=== PATIENT | male | born 1950 | race Caucasian/White ===

== ENCOUNTER 2019-01-30 14:24 | Inpatient (IN) | payer OTHER ==
[2019-01-30] MEDS ORDERED: IPRATROPIUM BROM 0.5MG/2.5ML ONE (15:09)
[2019-01-30] MEDS ORDERED: ALBUTEROL 2.5 MG/3 ML NEB SOL ONE (15:09)
--- NOTE | 2019-01-30 15:10 | RAD REPORT ---
EXAM DESCRIPTION: CT - CTHCSPWOC - 01/30/2019 2:57 pm CLINICAL HISTORY: Trauma, head and neck injury. fall COMPARISON: No comparisons TECHNIQUE: Axial 5 mm thick images of the head were obtained. Axial 2 mm thick images of the cervical spine were obtained with sagittal and coronal reconstruction images generated and reviewed. All CT scans are performed using dose optimization technique as appropriate and may include automated exposure control or mA/KV adjustment according to patient size. FINDINGS: CT HEAD WITHOUT CONTRAST: No acute hemorrhage, hydrocephalus or extra-axial collection is identified.No areas of brain edema or midline shift. Moderate mucoperiosteal thickening affects the left maxillary antrum and left ethmoid air cells. The paranasal sinuses and mastoids are otherwise clear.The calvarium is intact. CT CERVICAL SPINE WITHOUT CONTRAST: No fracture or subluxation.No prevertebral soft tissues swelling is identified. Irregular scarring in severe emphysematous changes present in the lung apices. IMPRESSION: No acute intracranial or cervical spine findings.
[2019-01-30 15:22] LABS: Absolute Lymphocytes (CBC) 1.1 K/uL (0.7-4.9); Absolute Monocytes 0.9 K/uL (0.1-1.3); Absolute Neutrophil 7.1 K/uL (1.8-8.0); Basophils % 0.5 % (0-1.3); Eosinophils % 0.6 % (0-4.4); Hematocrit 41.9 % (39.6-49.0); Lymphocytes % 11.6 % (15.3-44.8); MPV 11.2 fL (7.6-11.3); Monocytes % 9.7 % (3.3-12.3); RBC Red Blood Cell Count 4.43 M/uL (4.33-5.43)
[2019-01-30 15:24] LABS: Protime INR 1.18
[2019-01-30 15:38] LABS: Albumin 3.1 g/dL (3.4-5.0); Bilirubin Direct 0.3 mg/dL (0-0.2); Bilirubin Total 0.8 mg/dL (0.2-1.0); Magnesium 2.2 mg/dL (1.8-2.4); Potassium 4.1 mmol/L (3.5-5.1); Protein, Total 6.4 g/dL (6.4-8.2); Troponin (Emerg Dept Use Only) 0.03 ng/mL (0.0-0.045)
--- NOTE | 2019-01-30 15:59 | RAD REPORT ---
EXAM DESCRIPTION: RAD - Chest Single View - 01/30/2019 3:22 pm CLINICAL HISTORY: Weakness, shortness of breath, COPD COMPARISON: CT chest January 2015, chest film October 2014 TECHNIQUE: AP portable chest image was obtained 1519 hours . FINDINGS: Patient has a baseline of severe COPD with hyper expanded lung laura, flattened diaphragm . Bilateral costophrenic angle blunting is present. Extensive bullous formation is identifiable. Foca l cavity is present in the lateral right apex with surrounding fibrotic stranding. Interstitial and p atchy alveolar opacification in the mid and upper lung laura is far more pronounced than seen previo usly. In the acute clinical setting this is most likely a bilateral pneumonia. Progressive fibrosis o nasima this long interval is possible but does not likely explain the entirety of the interval change. Heart and vasculature are normal. No measurable pleural effusion and no pneumothorax. No acute bony abnormality seen. No acute aortic findings suspected. IMPRESSION: Left greater than right bilateral pneumonia superimposed on severe COPD. COPD has progressed substantially from 2015 comparison with focal cavitation now present in the right apex.
--- NOTE | 2019-01-30 17:00 | RAD REPORT ---
EXAM DESCRIPTION: CT - Thorax W/ Con - 01/30/2019 4:40 pm CLINICAL HISTORY: Chest pain, shortness of breath COMPARISON: Chest films same date, CT chest 2015 TECHNIQUE: Dynamically enhanced 5 mm thick images of the chest were obtained during administration o f 100 mL non-ionic IV contrast. All CT scans are performed using dose optimization technique as appropriate and may include automated exposure control or mA/KV adjustment according to patient size. FINDINGS: Patient has severe COPD. Multiple 3- 7 mm air-filled cystic cavities are present in the ri ght apex progressive from prior imaging. Less extensive cystic cavity formation in the left apex. In the left upper lung field there is a 3.6 x 1.6 centimeter irregular mass density. Extensive fibrotic stranding is present in the superior and lateral right apex. A 3.3 x 1.6 centimeter soft tissue mass is present in the lateral superior left lower lobe. Patient has numerous 8-12 cm sized air-filled cys tic cavities at each lung base. Interstitial thickening and scattered alveolar opacities are present in the posterior mid lung laura . This is believed to be the pneumonia component seen on chest film. No pleural based mass. There is a small left pleural effusion. No pneumothorax. No chest wall mass or abnormal axillary lymphadenopat hy. No abnormal mediastinal or hilar mass or lymphadenopathy seen. Aorta and pulmonary arterial tree enha nce normally. No pericardial effusion. IMPRESSION: Patient has very severe cystic emphysema change as detailed. Findings are progressive fr om the 2015 comparison. Interstitial and alveolar opacities in the posterior aspect of each mid lung field are believed to be superimposed pneumonia in these changes of the correlate to the chest film finding. Patient has several spiculated mass density scattered in the lung parenchyma, primarily upper lung fi elds. These are most likely areas of scarring from the COPD. Malignancy is not excluded in these need monitoring for growth. Small left pleural effusion.
[2019-01-30] MEDS ORDERED: MAGNESIUM SULFATE 1 gm IVPB 1 GM/100 ML BAG IV ONE (17:36)
[2019-01-30] MEDS ORDERED: METHYLPREDNISOLONE 125 MG INJ ONE (17:36)
[2019-01-30] MEDS ORDERED: NA CHLORIDE 0.9% 250 ML ONE (17:36)
[2019-01-30] MEDS ORDERED: LEVALBUTEROL 1.25 MG/3 ML NEB ONE (17:36)
[2019-01-30] MEDS ORDERED: Levofloxacin 750mg IV 750 MG/150 ML BAG IV ONE (17:36)
[2019-01-30 18:26] LABS: Urine Bacteria <20 /HPF (NONE SEEN); Urine Coarse Granular Casts 0-5 /LPF (NONE SEEN); Urine Culture Reflex Order REFLEXED; Urine Mucus 2+ /HPF (NONE SEEN)
--- NOTE | 2019-01-30 18:27 | ER ---
Nurse's Notes [facility] Name: Bertrand Pabon Age: 68 yrs Sex: Male : 1950 Arrival Date: 01/30/2019 Time: 14:27 Bed 26 Private MD: Diagnosis: Pneumonia due to other specified bacteria;Respiratory failure, unspecified with hypoxia Presentation: 01/30 14:29 Presenting complaint: EMS states: Generalized weakness and SOB x 1 week. Transition of hb care: patient was not received from another setting of care. Onset of symptoms is unknown. Risk Assessment: Do you want to hurt yourself or someone else? Patient reports no desire to harm self or others. Care prior to arrival: None. 14:29 Method Of Arrival: EMS: [facility] hb 14:29 Acuity: JOSEPH 2 hb Historical: - Allergies: 14:59 No Known Allergies; em - PMHx: 14:30 COPD; hb - Immunization history:: Adult Immunizations up to date. - Social history:: Smoking status: Patient/guardian denies using tobacco, the patient reports quitting approximately 2 years ago. - Ebola Screening: : No symptoms or risks identified at this time. Screenin:19 Abuse screen: Denies threats or abuse. Denies injuries from another. Nutritional hb screening: No deficits noted. Tuberculosis screening: No symptoms or risk factors identified. Fall Risk Total Awad Fall Scale indicates High Risk Score (45 or more points). Fall prevention measures have been instituted. Side Rails Up X 2 Frequent Obs/Assessments Occuring Family Present and informed to notify staff if the need to leave the bedside As available patient and family educated on Fall Prevention Program and Strategies. Assessment: 14:35 General: Appears distressed, ill, Behavior is cooperative, flat. Pain: Denies pain. hb Neuro: Level of Consciousness is obeys commands, lethargic, Oriented to person, place, time, situation. Cardiovascular: Heart tones S1 S2 present Capillary refill < 3 seconds Patient's skin is warm and dry. Respiratory: Airway is patent Trachea midline Respiratory effort is labored, Respiratory pattern is tachypnea Breath sounds are diminished bilaterally. GI: No signs and/or symptoms were reported involving the gastrointestinal system. : No signs and/or symptoms were reported regarding the genitourinary system. EENT: No signs and/or symptoms were reported regarding the EENT system. Derm: Skin is healthy with good turgor, is thin, Skin is dry, Skin is pale, Skin temperature is warm. Musculoskeletal: No signs and/or symptoms reported regarding the musculoskeletal system. 15:05 Reassessment: BIPAP 12/6, R 12, FIO2 40%. hb 16:15 Reassessment: Patient appears in no apparent distress at this time. Patient and/or em family updated on plan of care and expected duration. Pain level reassessed. Patient is alert, oriented x 3, equal unlabored respirations, skin warm/dry/pink. Patient denies pain at this time. Patient states feeling better. Patient states symptoms have improved. 17:16 Reassessment: Patient appears in no apparent distress at this time. Patient and/or em family updated on plan of care and expected duration. Pain level reassessed. Patient is alert, oriented x 3, equal unlabored respirations, skin warm/dry/pink. family at bedside Patient denies pain at this time. 18:15 Reassessment: Patient appears in no apparent distress at this time. Patient and/or em family updated on plan of care and expected duration. Pain level reassessed. Patient is alert, oriented x 3, equal unlabored respirations, skin warm/dry/pink. 19:50 General: Appears distressed, ill, Behavior is cooperative, flat. Pain: Denies pain. fu Neuro: Level of Consciousness is obeys commands, lethargic, Oriented to person, place, time, situation. Respiratory: Airway is patent Respiratory effort is labored, Respiratory pattern is tachypnea Breath sounds are diminished. Derm: Skin is thin, Skin is dry, Skin is pale, Skin temperature is warm. Musculoskeletal: No signs and/or symptoms reported regarding the musculoskeletal system. 20:41 Reassessment: Patient appears in no apparent distress at this time. Patient and/or fu family updated on plan of care and expected duration. Pain level reassessed. Patient is alert, oriented x 3, equal unlabored respirations, skin warm/dry/pink. Patient denies pain at this time. Patient states symptoms have improved. Vital Signs: 14:26 Pulse Ox 76% on 3 lpm NC; hb 14:28 BP 124 / 75; Pulse 88; Resp 26; Temp 97(O); Pulse Ox 87% on 4 lpm NC; Pain 0/10; hb 15:22 BP 117 / 89; Pulse 90; Resp 19; Pulse Ox 89% on 40% BiPAP; hb 16:15 BP 109 / 74; Pulse 96; Resp 24; Pulse Ox 87% on BiPAP; em 17:15 BP 105 / 70; Pulse 89; Resp 22; Pulse Ox 89% on BiPAP; em 18:15 BP 103 / 66; Pulse 94; Resp 22; Pulse Ox 90% on BiPAP; em 19:00 BP 92 / 65; Pulse 97; Temp 98.9; Pulse Ox 93% on BiPAP; Pain 0/10; fu 20:44 BP 91 / 70; Pulse 82; Pulse Ox 94% on BiPAP; Pain 0/10; fu ED Course: 14:27 Patient arrived in ED. em 14:27 Jose Lebron PA is PHCP. cp 14:28 Scotty Krishnan MD is Attending Physician. cp 14:29 Triage completed. hb 14:30 Arm band placed on. hb 14:40 Patient has correct armband on for positive identification. Placed in gown. Bed in low hb position. Call light in reach. Side rails up X2. monitoring manager on. Pulse ox on. NIBP on. 14:54 EKG done, by survey cad technician. dt2 14:57 Kyle Bailey LVN is Primary Nurse. em 14:58 CT completed. Patient tolerated procedure well. Patient moved to CT. Patient moved back jg6 from CT. 15:00 Initial lab(s) drawn, by me, sent to lab. Inserted saline lock: 20 gauge in left Blood em collected. 15:01 CT Head C Spine In Process Unspecified. EDMS 15:14 BIPAP Sent. hb 15:22 XRAY Chest (1 view) In Process Unspecified. EDMS 16:[address] via stretcher. jg6 16:40 CT Chest W/ Con In Process Unspecified. EDMS 18:09 Assisted with urinal. jp3 18:09 Urine collected: clean catch specimen, clear, barbie colored, Amount Voided: 20mL. jp3 18:25 Mamie Austin MD is Hospitalizing Provider. cp Administered Medications: 15:13 Drug: Albuterol - atroVENT (3:1) (2.5 mg - 0.5 mg) 3 ml Route: Nebulizer; hb 17:40 Drug: SOLU-Medrol 125 mg Route: IVP; Site: left forearm; hb 18:33 Follow up: Response: No adverse reaction hb 17:50 Drug: LevaQUIN 750 mg Volume: 150 ml; Route: IVPB; Infused Over: 90 mins; Site: left em forearm; 17:50 Drug: NS 0.9% 250 ml Route: IV; Rate: bolus; Site: left forearm; em 17:50 Drug: Xopenex (3) 1.25 mg Route: Inhalation; em 17:50 Drug: Magnesium Sulfate 1 grams Route: IVPB; Infused Over: 1 hrs; Site: left forearm; em Outcome: 18:26 Decision to Hospitalize by Provider. cp 21:26 Admitted to Tele Report called to HUANG Reid 22:33 Patient left the ED. fu Signatures: Dispatcher [employer] EDyKle Bennett, LUMBER TRIPPER LUMBER TRIPPER em Jose Lebron PA PA cp Baxter, Heather, RN RN Eitan Antunez RN RN Mattie Varma dt2 Sebas Brooks jp3 Thao Martinezg6
--- NOTE | 2019-01-30 18:28 | EDPHYS ---
Physician Documentation [facility] Name: Bertrand Pabon Age: 68 yrs Sex: Male : 1950 Arrival Date: 01/30/2019 Time: 14:27 Bed 26 Private MD: ED Physician Scotty Krishnan HPI: 01/30 14:45 This 68 yrs old Male presents to ER via EMS with complaints of Shortness Of cp Breath. 14:45 The patient has shortness of breath at rest. Onset: The symptoms/episode began/occurred cp 1 week(s) ago. 14:45 Duration: The symptoms are continuous, and are steadily getting worse. Associated signs cp and symptoms: Pertinent positives: generalized weakness, Pertinent negatives: chest pain, diaphoresis, fever, hemoptysis. 14:45 Severity of symptoms: in the emergency department the symptoms are worse. cp Historical: - Allergies: 14:59 No Known Allergies; em - PMHx: 14:30 COPD; hb - Immunization history:: Adult Immunizations up to date. - Social history:: Smoking status: Patient/guardian denies using tobacco, the patient reports quitting approximately 2 years ago. - Ebola Screening: : No symptoms or risks identified at this time. ROS: 14:50 Constitutional: Negative for body aches, chills, fever, poor PO intake. cp 14:50 Eyes: Negative for injury, pain, redness, and discharge. cp 14:50 Cardiovascular: Negative for chest pain, palpitations. cp 14:50 Neck: Negative for pain with movement, pain at rest, stiffness. cp 14:50 Respiratory: Positive for shortness of breath, at rest. Negative for hemoptysis. 14:50 Abdomen/GI: Negative for abdominal pain, vomiting, diarrhea, constipation, black/tarry stool, rectal bleeding. 14:50 Skin: Negative for rash. 14:50 Neuro: Positive for general weakness, Negative for altered mental status, headache, syncope. 14:50 All other systems are negative. Exam: 14:55 Constitutional: The patient appears alert, awake, non-diaphoretic, non-toxic, well cp developed, frail. 14:55 Head/Face: Normocephalic, atraumatic. cp 14:55 Eyes: Periorbital structures: appear normal, Pupils: equal, round, and reactive to light and accomodation, Extraocular movements: intact throughout, Conjunctiva: normal, no exudate, no injection, Sclera: no appreciated abnormality, Lids and lashes: appear normal, bilaterally. 14:55 ENT: External ear(s): are unremarkable, Ear canal(s): are normal, clear, TM's: dullness, bilaterally, Nose: is normal, Mouth: Lips: dry, Oral mucosa: moist, Posterior pharynx: Airway: no evidence of obstruction, patent, Tonsils: are normal in appearance, swelling, is not appreciated, erythema, is not appreciated, exudate, is not appreciated. 14:55 Neck: ROM/movement: is normal, is supple, without pain, no range of motions limitations, no meningismus, no nuchal rigidity. 14:55 Chest/axilla: Inspection: normal, Palpation: is normal, no crepitus, no tenderness. 14:55 Cardiovascular: Rate: normal, Rhythm: regular, Edema: ankle edema, that is mild, JVD: is not appreciated. 14:55 Respiratory: moderate respiratory distress is noted, Respirations: labored breathing, that is moderate, tachypnea, that is moderate, Breath sounds: decreased breath sounds, that are moderate, throughout, stridor, is not appreciated, wheezing: is not appreciated. 14:55 Abdomen/GI: Inspection: abdomen appears normal, Palpation: abdomen is soft and non-tender, in all quadrants. 14:55 Skin: cellulitis, is not appreciated, no rash present. 14:55 Neuro: Orientation: to person, place \T\ time. Mentation: is normal, Cerebellar function: is grossly normal, Motor: moves all fours, general weakness w/o focal deficits, Sensation: is normal. 14:57 ECG was reviewed by the Attending Physician. cp Vital Signs: 14:26 Pulse Ox 76% on 3 lpm NC; hb 14:28 BP 124 / 75; Pulse 88; Resp 26; Temp 97(O); Pulse Ox 87% on 4 lpm NC; Pain 0/10; hb 15:22 BP 117 / 89; Pulse 90; Resp 19; Pulse Ox 89% on 40% BiPAP; hb 16:15 BP 109 / 74; Pulse 96; Resp 24; Pulse Ox 87% on BiPAP; em 17:15 BP 105 / 70; Pulse 89; Resp 22; Pulse Ox 89% on BiPAP; em 18:15 BP 103 / 66; Pulse 94; Resp 22; Pulse Ox 90% on BiPAP; em 19:00 BP 92 / 65; Pulse 97; Temp 98.9; Pulse Ox 93% on BiPAP; Pain 0/10; fu 20:44 BP 91 / 70; Pulse 82; Pulse Ox 94% on BiPAP; Pain 0/10; fu MDM: 14:28 Patient medically screened. 18:20 Data reviewed: vital signs, nurses notes, lab test result(s), EKG, radiologic studies, cp CT scan, plain films. 18:20 Test interpretation: by ED physician or midlevel provider: ECG, plain radiologic cp studies. 18:22 Physician consultation: Mamie Austin MD was called at 18:24, was contacted at 18:24, regarding admission, to the medical/surgical unit. patient's condition. 01/30 14:37 Order name: Basic Metabolic Panel; Complete Time: 15:58 01/30 15:59 Interpretation: Normal except: CL 92; CO2 40; GLUC 167; BUN 48; GFR 86. 01/30 14:37 Order name: CBC with Diff; Complete Time: 15:38 01/30 15:38 Interpretation: Normal except: HGB 13.3; MCHC 31.8; KATHY% 77.6; LYM% 11.6. 01/30 14:37 Order name: LFT's; Complete Time: 15:58 01/30 14:37 Order name: Magnesium; Complete Time: 15:58 01/30 14:37 Order name: NT PRO-BNP; Complete Time: 15:58 01/30 15:59 Interpretation: Abnormal: NT PRO-BNP 2144. 01/30 14:37 Order name: PT-INR; Complete Time: 15:38 01/30 14:37 Order name: Troponin (emerg Dept Use Only); Complete Time: 15:58 01/30 14:37 Order name: Blood Culture Adult (2) 01/30 14:37 Order name: Procalcitonin; Complete Time: 15:59 01/30 14:37 Order name: Lactate; Complete Time: 15:58 01/30 14:38 Order name: Urine Microscopic Only 01/30 15:25 Order name: Influenza Screen (a \T\ B); Complete Time: 16:50 cp 01/30 16:50 Interpretation: Reviewed. 01/30 18:29 Order name: Urine Culture EDCO 01/30 21:10 Order name: Urine Dipstick--Ancillary (enter results) ms 01/30 14:37 Order name: XRAY Chest (1 view); Complete Time: 16:02 01/30 14:37 Order name: EKG; Complete Time: 14:38 01/30 14:37 Order name: Cardiac monitoring; Complete Time: 15:14 01/30 14:37 Order name: EKG - Nurse/Tech; Complete Time: 15:14 01/30 14:37 Order name: IV Saline Lock; Complete Time: 15:14 01/30 14:37 Order name: Labs collected and sent; Complete Time: 15:14 01/30 14:37 Order name: BIPAP 01/30 14:37 Order name: CT Head C Spine; Complete Time: 15:23 01/30 15:24 Interpretation: Reviewed report. 01/30 16:05 Order name: CT Chest W/ Con; Complete Time: 17:02 01/30 21:48 Order name: Urine Dipstick-Ancillary EDCO 01/30 14:37 Order name: O2 Per Protocol; Complete Time: 15:14 01/30 14:37 Order name: O2 Sat Monitoring; Complete Time: 15:14 01/30 14:38 Order name: Urine Dipstick-Ancillary (obtain specimen); Complete Time: 18:32 cp EC:57 Rate is 97 beats/min. Rhythm is regular. VT interval is normal. QRS interval is normal. cp QT interval is normal. Interpreted by me. Reviewed by me. Administered Medications: 15:13 Drug: Albuterol - atroVENT (3:1) (2.5 mg - 0.5 mg) 3 ml Route: Nebulizer; hb 17:40 Drug: SOLU-Medrol 125 mg Route: IVP; Site: left forearm; hb 18:33 Follow up: Response: No adverse reaction hb 17:50 Drug: LevaQUIN 750 mg Volume: 150 ml; Route: IVPB; Infused Over: 90 mins; Site: left em forearm; 17:50 Drug: NS 0.9% 250 ml Route: IV; Rate: bolus; Site: left forearm; em 17:50 Drug: Xopenex (3) 1.25 mg Route: Inhalation; em 17:50 Drug: Magnesium Sulfate 1 grams Route: IVPB; Infused Over: 1 hrs; Site: left forearm; em Disposition: 01/31 06:58 Co-signature as Attending Physician, Scotty Krishnan MD. rn Disposition: 01/30/19 18:26 Hospitalization ordered by Mamie Austin for Inpatient Admission. Preliminary diagnosis are Pneumonia due to other specified bacteria, Respiratory failure, unspecified with hypoxia. - Bed requested for Telemetry/MedSurg (Inpatient). - Status is Inpatient Admission. fu - Condition is Stable. - Problem is new. - Symptoms have improved. UTI on Admission? No Signatures: Dispatcher [employer] Soila Thornton RN RN Kyle Wilson, PHOTOCOPYING MACHINE OPERATOR PHOTOCOPYING MACHINE OPERATOR Scotty Gong MD MD rn Page, Corey, PA PA cp Baxter, Heather, RN RN Eitan Antunez RN RN fu Corrections: (The following items were deleted from the chart) 01/30 21:01 18:26 Hospitalization Ordered by Mamie Austin MD for Inpatient Admission. Preliminary dw diagnosis is Pneumonia due to other specified bacteria; Respiratory failure, unspecified with hypoxia. Bed requested for Telemetry/MedSurg (Inpatient). Status is Inpatient Admission. Condition is Stable. Problem is new. Symptoms have improved. UTI on Admission? No. cp 22:33 21:01 01/30/2019 18:26 Hospitalization Ordered by Mamie Austin MD for Inpatient fu Admission. Preliminary diagnosis is Pneumonia due to other specified bacteria; Respiratory failure, unspecified with hypoxia. Bed requested for Telemetry/MedSurg (Inpatient). Status is Inpatient Admission. Condition is Stable. Problem is new. Symptoms have improved. UTI on Admission? No. dw
[2019-01-30 21:47] LABS: Urine Blood NEGATIVE (NEG); Urine Glucose NEGATIVE (NEG); Urine Protein TRACE (NEG)
[2019-01-30] MEDS ORDERED: ALBUTEROL 2.5 MG/3 ML NEB SOL NEB PRN (22:56)
[2019-01-30] MEDS ORDERED: ONDANSETRON 4 MG/2 ML VIAL IV PRN (22:56)
[2019-01-30] MEDS ORDERED: ACETAMINOPHEN 500 MG TAB PO PRN (22:56)
[2019-01-30] MEDS ORDERED: IPRATROPIUM BROM 0.5MG/2.5ML NEB PRN (22:56)
[2019-01-30] MEDS ORDERED: CEFTRIAXONE 1 GM/NS 50 ML 1 GM/50 ML BAG IV SCH (22:56)
[2019-01-30] MEDS ORDERED: CEFTRIAXONE/SWI 1gm 1 GM/10 ML SYR ONE (23:54)
[2019-01-31 00:42] LABS: Arterial Blood Carboxyhemoglob 1.5 % (0-1.5); Blood Gas Oxyhemoglobin 96.1 % (94-97); Blood O2 Saturation 98.1 % (92-98.5)
[2019-01-31] MEDS: METHYLPREDNISOLONE 40 MG INJ IV SCH ×3 (01:09→17:20)
[2019-01-31 06:46] LABS: Absolute Lymphocytes (CBC) 0.2 K/uL (0.7-4.9); Absolute Monocytes 0.1 K/uL (0.1-1.3); Absolute Neutrophil 4.6 K/uL (1.8-8.0); Basophils % 0.1 % (0-1.3); Eosinophils % 0.1 % (0-4.4); Lymphocytes % 4.2 % (15.3-44.8); MPV 11.9 fL (7.6-11.3); Monocytes % 1.5 % (3.3-12.3)
[2019-01-31 06:59] LABS: Platelet Estimate ADEQ; Platelets, Giant PRESENT
[2019-01-31 07:00] LABS: Basophilic Stippling 1+; Blood Morphology Comment NOTED (NOT SEEN); Urine White Blood Cell Casts OK
[2019-01-31] MEDS ORDERED: HOME MED 1 EA UNK (Budesonide/Formoterol Fumarate [Symbicort 160-4.5 Mcg Inhaler] 2 PUFF) IH SCH (09:00)
[2019-01-31] MEDS ORDERED: CEFEPIME 1 GM/VIAL IV SCH (09:00)
[2019-01-31] MEDS ORDERED: CEFTRIAXONE/SWI 1gm 1 GM/10 ML SYR IV SCH (09:00)
[2019-01-31] MEDS ORDERED: AZITHROMYCIN IV 500 MG in NA CHLORIDE 0.9% 250 ML IVPB SCH (09:00)
[2019-01-31] MEDS: CEFEPIME/SWI 1gm 10 ML IV SCH ×2 (09:23→21:00)
[2019-01-31] MEDS: ENOXAPARIN 40 MG/0.4 ML SQ SCH (09:24)
[2019-01-31] MEDS: LOSARTAN POTASSIUM 50 MG TABLET PO SCH (09:24)
--- NOTE | 2019-01-31 09:44 | P.HP ---
Certification for Inpatient Patient admitted to: Inpatient With expected LOS: >2 Midnights Patient will require the following post-hospital care: None Practitioner: I am a practitioner with admitting privileges, knowledge of patient current condition, hospital course, and medical plan of care. Services: Services provided to patient in accordance with Admission requirements found in Title 42 Section 412.3 of the Code of Federal Regulations Patient History Date of Service: 01/30/19 Reason for admission: Shortness of breath History of Present Illness: Patient is a 68-year-old gentleman who came into the hospital with difficulty breathing. Patient is very cachectic and very frail-appearing. Patient was found to have an acute COPD exacerbation. Patient was placed on BiPAP. Patient also was requiring oxygen. Patient was admitted and started on nebs, steroids, antibiotics. Will continue monitoring labs. Patient is very weak and if no further treatment would be beneficial that he may be benefit from hospice care. He appears to be very malnourished. He does not have much of an appetite. Will go ahead and work him up & Consult Pulmonary. Allergies No Known Allergies Allergy (Verified 01/31/19 00:51) Home Medications: Budesonide/Formoterol Fumarate [Symbicort 160-4.5 Mcg Inhaler] 2 puff IH BID 11/09 Losartan Potassium 1 tab PO DAILY 01/31/19 - Past Medical/Surgical History Has patient received pneumonia vaccine in the past: Yes Diabetic: No -: COPD -: HTN -: Hernia Surgery - Family History Mother Notes: Breast Cancer - Social History Smoking Status: Former smoker Alcohol use: Yes CD- Drugs: No Caffeine use: Yes Place of Residence: Home Review of Systems 10-point ROS is otherwise unremarkable Physical Examination - Vital Signs Temperature: 97 F Blood Pressure: 105/70 Pulse: 89 Respirations: 22 Pulse Ox (%): 98 - Physical Exam General: Alert, In no apparent distress, Oriented x3 HEENT: Atraumatic, Normocephalic, PERRLA, Mucous membr. moist/pink Neck: Supple, 2+ carotid pulse no bruit, JVD not distended, No Thyromegaly Respiratory: Diminished, Expiratory wheezes Cardiovascular: Regular rate/rhythm, Normal S1 S2, Systolic murmur Gastrointestinal: Normal bowel sounds, Hypoactive, Soft and benign, Non- distended, No tenderness Musculoskeletal: No clubbing, No swelling Integumentary: No rashes, No breakdown Neurological: Normal gait, Normal speech, Sensation intact, Cranial nerves 3-12 intact, Abnormal strength, Abnormal tone - Studies Laboratory Data (last 24 hrs) 01/30/19 14:50: PT 13.8 H, INR 1.18 01/30/19 14:50: WBC 9.2, Hgb 13.3 L, Hct 41.9, Plt Count 165 01/30/19 14:50: Sodium 139, Potassium 4.1, BUN 48 H, Creatinine 0.88, Glucose 167 H, Magnesium 2.2, Total Bilirubin 0.8, AST 20, ALT 15, Alkaline Phosphatase 68 Microbiology Data (last 24 hrs): 01/30/19 16:00 Nasopharnyx Influenza Type A Antigen Screen - Final 01/30/19 16:00 Nasopharnyx Influenza Type B Antigen Screen - Final Assessment & Plan - Problems (Diagnosis) (1) Acute bronchitis with COPD Current Visit: Yes Status: Acute (2) Lung mass Current Visit: Yes Status: Acute (3) Prerenal azotemia Current Visit: Yes Status: Acute - Plan Plan: 1. Continue with albuterol and Atrovent nebs 2. Continue with IV steroids 3. BiPAP support 4. Pulmonary consultation 5. Gently wean off O2 6. Repeat chest x-ray in the morning 7. GI and DVT prophylaxis Discharge Plan: Home Plan to discharge in: Greater than 2 days - Advance Directives Does patient have a Living Will: No Does patient have a Durable POA for Healthcare: Yes - Code Status/Comfort Care Code Status Assessed: Yes Code Status: Full Code Critical Care: No Time Spent Managing PTS Care (In Minutes): 45
[2019-01-31 09:47] LABS: ALT/SGPT 11 U/L (12-78); AST/SGOT 14 U/L (15-37); Albumin 2.9 g/dL (3.4-5.0); Alkaline Phosphatase 53 U/L (45-117); BUN Blood Urea Nitrogen 38 mg/dL (7-18); Bilirubin Total 0.8 mg/dL (0.2-1.0); Glucose Level 145 mg/dL (74-106); Potassium 4.7 mmol/L (3.5-5.1); Protein, Total 6.1 g/dL (6.4-8.2); Sodium Level 141 mmol/L (136-145)
[2019-01-31 09:56] LABS: Bicarbonate 43 mmol/L (21-32)
--- NOTE | 2019-01-31 12:20 | P.CNS ---
Date of Consult: 01/31/19 Chief Complaint: Shortness of breath History of Present Illness: Patient is 68 years of age admitted to the hospital with respiratory failure toxic hypercapnic he has been sick for a while got progressively worse patient is an active smoker he does uses in an inhaler at home currently on BiPAP unable to communicate Allergies No Known Allergies Allergy (Verified 01/31/19 00:51) Home Medications: Budesonide/Formoterol Fumarate [Symbicort 160-4.5 Mcg Inhaler] 2 puff IH BID 11/09 Losartan Potassium 1 tab PO DAILY 01/31/19 - Past Medical/Surgical History Diabetic: No -: COPD -: HTN -: Hernia Surgery - Family History Mother Notes: Breast Cancer - Social History Alcohol use: Yes CD- Drugs: No Caffeine use: Yes Place of Residence: Home Review of Systems General: Weakness Respiratory: Cough, Shortness of Breath Physical Examination Temp Pulse Resp BP Pulse Ox 97 F 89 22 H 105/70 98 01/31/19 09:43 01/31/19 09:43 01/31/19 09:43 01/31/19 09:43 01/31/19 09:43 General: Alert, Moderate distress HEENT: Atraumatic Neck: Supple Respiratory: Clear to auscultation bilaterally, Diminished Cardiovascular: Regular rate/rhythm, Normal S1 S2, Edema (1+ edema) Gastrointestinal: Normal bowel sounds, Soft and benign Laboratory Data (last 24 hrs) 01/30/19 14:50: PT 13.8 H, INR 1.18 01/30/19 14:50: WBC 9.2, Hgb 13.3 L, Hct 41.9, Plt Count 165 01/30/19 14:50: Sodium 139, Potassium 4.1, BUN 48 H, Creatinine 0.88, Glucose 167 H, Magnesium 2.2, Total Bilirubin 0.8, AST 20, ALT 15, Alkaline Phosphatase 68 - Problems (1) Respiratory failure with hypoxia and hypercapnia Current Visit: Yes Status: Acute Plan: Changes 68 years of age with presume severe COPD he has flattened inverted diaphragms severe bolus changes on his CT scan he may benefit from a noninvasive ventilator also ordered an alpha-1 level continue with steroids antibiotics change to cefepime Qualifiers: Chronicity: acute on chronic Qualified Code(s): J96.21 - Acute and chronic respiratory failure with hypoxia; J96.22 - Acute and chronic respiratory failure with hypercapnia
[2019-01-31] MEDS: IPRATROPIUM BROM 0.5MG/2.5ML NEB SCH ×2 (13:37→20:00)
[2019-01-31] MEDS: THEOPHYLLINE SR 100 MG TAB PO SCH (14:52)
[2019-01-31] MEDS: ARFORMOTEROL TARTRATE 15 MCG/2 ML VIAL.NEB NEB SCH (20:00)
--- NOTE | 2019-01-31 21:50 | P.PN ---
Subjective Date of Service: 01/31/19 Chief Complaint: Shortness of breath Subjective: No new changes Patient seen and examined at bedside. Ex- (MPOA) at bedside. Chart reviewed and case discussed with nursing staff and Dr. Duke. Patient requiring bi-pap continuously. Review of Systems 10-point ROS is otherwise unremarkable Physical Examination - Vital Signs Temperature: 97.9 F Blood Pressure: 113/63 Pulse: 106 Respirations: 16 Pulse Ox (%): 90 - Physical Exam General: Alert, Oriented x3, Mild distress, Other (weak, frail, elderly appearing) HEENT: Atraumatic, PERRLA, EOMI Neck: Supple, JVD not distended Respiratory: Diminished, Crackles/rales Cardiovascular: Regular rate/rhythm, Normal S1 S2 Gastrointestinal: Normal bowel sounds, No tenderness Musculoskeletal: No tenderness Integumentary: No rashes Neurological: Normal speech, Normal tone, Normal affect Lymphatics: No axilla or inguinal lymphadenopathy Assessment And Plan - Plan - Problems (Diagnosis) (1) Acute bronchitis with COPD (2) Lung mass (3) Prerenal azotemia Plan: 1. Continue with albuterol and Atrovent nebs 2. Continue with IV steroids 3. BiPAP support 4. Pulmonary consultation, Recommendations appreciated. 5. GI and DVT prophylaxis
[2019-01-31] MEDS ORDERED: CEFEPIME 1 GM/100 ML BAG IV ONE (23:36)
[2019-02-01] MEDS: METHYLPREDNISOLONE 40 MG INJ IV SCH ×3 (00:19→16:12)
[2019-02-01] MEDS: IPRATROPIUM BROM 0.5MG/2.5ML NEB SCH ×4 (02:00→20:00)
[2019-02-01] MEDS: ARFORMOTEROL TARTRATE 15 MCG/2 ML VIAL.NEB NEB SCH ×2 (08:17→20:00)
[2019-02-01] MEDS: ENOXAPARIN 40 MG/0.4 ML SQ SCH (08:44)
[2019-02-01] MEDS: CEFEPIME/SWI 1gm 10 ML IV SCH (08:45)
[2019-02-01] MEDS: THEOPHYLLINE SR 100 MG TAB PO SCH (08:45)
[2019-02-01] MEDS: LOSARTAN POTASSIUM 50 MG TABLET PO SCH (08:45)
--- NOTE | 2019-02-01 08:55 | P.PN ---
Subjective Date of Service: 02/01/19 Chief Complaint: Respiratory failure Patient's condition is stable he is still very short of breath unable to come off the BiPAP hemodynamically stable Review of Systems General: Weakness Respiratory: Shortness of Breath Physical Examination - Vital Signs Temperature: 97.5 F Blood Pressure: 112/60 Pulse: 92 Respirations: 16 Pulse Ox (%): 95 - Physical Exam General: Alert, In no apparent distress HEENT: Atraumatic Neck: Supple Respiratory: Diminished, Expiratory wheezes Cardiovascular: No edema, Regular rate/rhythm Assessment & Plan - Problems (Diagnosis) (1) Respiratory failure with hypoxia and hypercapnia Current Visit: Yes Status: Acute Plan: Patient admitted with hypoxic hypercapnic respiratory failure the very impressive emphysematous changes on the CT scan harden will benefit from a transfer to an LTAC facility and possibly from a noninvasive ventilator Qualifiers: Chronicity: acute on chronic Qualified Code(s): J96.21 - Acute and chronic respiratory failure with hypoxia; J96.22 - Acute and chronic respiratory failure with hypercapnia
[2019-02-01] MEDS ORDERED: levoFLOXacin 750 MG TAB PO SCH (09:00)
[2019-02-01 09:14] LABS: Absolute Lymphocytes (CBC) 0.4 K/uL (0.7-4.9); Absolute Monocytes 0.4 K/uL (0.1-1.3); Absolute Neutrophil 7.5 K/uL (1.8-8.0); Basophils % 0.2 % (0-1.3); Hematocrit 39.5 % (39.6-49.0); Lymphocytes % 4.5 % (15.3-44.8); MPV 11.5 fL (7.6-11.3); Monocytes % 4.6 % (3.3-12.3); RBC Red Blood Cell Count 4.25 M/uL (4.33-5.43)
[2019-02-01 09:24] LABS: BUN Blood Urea Nitrogen 30 mg/dL (7-18); Glucose Level 143 mg/dL (74-106); Potassium 4.2 mmol/L (3.5-5.1); Sodium Level 140 mmol/L (136-145)
[2019-02-01 09:25] LABS: Bicarbonate 42 mmol/L (21-32)
--- NOTE | 2019-02-01 10:50 | ECHO ---
HEIGHT: 5 ft 8 in WEIGHT: 95 lb 0 oz DATE OF STUDY: 02/01/[address]: Livan Duke MD 2-DIMENSIONAL: YES M.MODE: YES DOPPLER: YES COLOR FLOW: YES TDS: NO PORTABLE: NO DEFINITY: NO BUBBLE STUDY: NO DIAGNOSIS: SEVERE COPD CARDIAC HISTORY: CATHERIZATION: NO SURGERY: NO PROSTHETIC VALVE: NO PACEMAKER: NO MEASUREMENTS (cm) DIASTOLIC (NORMALS) SYSTOLIC (NORMALS) IVSd 0.6 (0.6-1.2) LA Diam 2.9 (1.9-4.0) LVEF 85% LVIDd 3.2 (3.5-5.7) LVIDs 1.5 (2.0-3.5) %FS 53% LVPWd 0.7 (0.6-1.2) Ao Diam 3.0 (2.0-3.7) 2 DIMENSIONAL ASSESSMENT: RIGHT ATRIUM: DILATED LEFT ATRIUM: NORMAL RIGHT VENTRICLE: DILATED LEFT VENTRICLE: NORMAL TRICUSPID VALVE: NORMAL MITRAL VALVE: NORMAL PULMONIC VALVE: NORMAL AORTIC VALVE: NORMAL PERICARDIAL EFFUSION: NONE AORTIC ROOT: NORMAL LEFT VENTRICULAR WALL MOTION: HYPERDYNAMIC WITH PARADOXICAL SEPTAL MOTION. DOPPLER/COLOR FLOW: MILD TRICUSPID REGURGITATION. ESTIMATED RIGHT VENTRICULAR SYSTOLIC PRESSURE 20 mmHg. SEVERE PULMONARY HYPERTENSION. ESTIMATED RIGHT ATRIAL PRESSURE 15mmHg. COMMENTS: HYPERDYNAMIC LEFT VENTRICULAR EJECTION FRACTION WITH PARADOXICAL SEPTAL MOTION. DILATED RIGHT ATRIUM AND RIGHT VENTRICLE. MILD TRICUSPID REGURGITATION. SEVERE PULMONARY HYPERTENSION. ATRIAL FIBRILLATION WITH HEART RATE OF 120-140 BEATS PER MINUTE. TECHNOLOGIST: Marion WHITLOCK
[2019-02-01 12:40] LABS: Arterial Blood Carboxyhemoglob 1.6 % (0-1.5); Blood Gas Oxyhemoglobin 77.1 % (94-97); Blood O2 Saturation 78.8 % (92-98.5)
[2019-02-01] MEDS: ENSURE ENLIVE 237 ML CAN PO SCH (20:26)
--- NOTE | 2019-02-01 22:27 | P.PN ---
Subjective Date of Service: 02/01/19 Chief Complaint: Shortness of breath Subjective: No new changes Patient seen and examined at bedside. Ex- (MPOA) at bedside. Chart reviewed and case discussed with nursing staff and Dr. Duke. Patient requiring bi-pap continuously. more awake then yesterday though de sat to low 80's without bi-pap Review of Systems 10-point ROS is otherwise unremarkable Physical Examination - Vital Signs Temperature: 97.9 F Blood Pressure: 113/63 Pulse: 106 Respirations: 16 Pulse Ox (%): 90 - Physical Exam General: Alert, Oriented x3, Other (elderly, ill-appearing, frail) HEENT: Atraumatic, PERRLA, EOMI Neck: Supple, JVD not distended Respiratory: Diminished, Crackles/rales Cardiovascular: Regular rate/rhythm, Normal S1 S2 Gastrointestinal: Normal bowel sounds, No tenderness Musculoskeletal: No tenderness Integumentary: No rashes Neurological: Normal speech, Normal tone, Normal affect Lymphatics: No axilla or inguinal lymphadenopathy Assessment And Plan - Plan - Problems (Diagnosis) (1) Acute bronchitis with COPD (2) Lung mass (3) Prerenal azotemia Plan: 1. Continue with albuterol and Atrovent nebs 2. Continue with IV steroids 3. BiPAP support 4. Pulmonary consultation, Recommendations appreciated. 5. GI and DVT prophylaxis Patient requiring bipap continupusly. Evaluation pending for NIVV and patient will benefit from LTAC. SW consulted.
[2019-02-02] MEDS: METHYLPREDNISOLONE 40 MG INJ IV SCH (01:27)
[2019-02-02] MEDS: IPRATROPIUM BROM 0.5MG/2.5ML NEB SCH ×4 (02:00→20:00)
--- NOTE | 2019-02-02 08:33 | P.PN ---
Subjective Date of Service: 02/02/19 Chief Complaint: Respiratory failure Patient condition is stable he still continues to require BiPAP ex present at the bedside patient does take Symbicort at home denies any cough or sputum feeling very weak Review of Systems General: Weakness Respiratory: Shortness of Breath Physical Examination - Vital Signs Temperature: 97.0 F Blood Pressure: 110/68 Pulse: 93 Respirations: 16 Pulse Ox (%): 94 - Physical Exam General: Alert, Mild distress Neck: Supple Respiratory: Diminished Cardiovascular: No edema, Regular rate/rhythm - Studies Microbiology Data (last 24 hrs): 01/30/19 18:00 Clean Catch Urine [place] Count - Final BETWEEN 10,000 & 100,000 CFU/ML 01/30/19 18:00 Clean Catch Urine - Final Assessment & Plan - Problems (Diagnosis) (1) Respiratory failure with hypoxia and hypercapnia Current Visit: Yes Status: Acute Plan: Patient's condition is stable on BiPAP he has terminal COPD change to p.o. prednisone reduce dose of levofloxacin so far cultures are negative sputum cultures are pending agree with transfer to an LTAC prognosis very poor consider discussion regarding DNR alpha 1 antitrypsin level ordered pending Qualifiers: Chronicity: acute on chronic Qualified Code(s): J96.21 - Acute and chronic respiratory failure with hypoxia; J96.22 - Acute and chronic respiratory failure with hypercapnia
[2019-02-02] MEDS ORDERED: levoFLOXacin 500 MG TAB PO SCH (09:00)
[2019-02-02] MEDS: ARFORMOTEROL TARTRATE 15 MCG/2 ML VIAL.NEB NEB SCH ×2 (09:26→20:00)
[2019-02-02] MEDS: LOSARTAN POTASSIUM 50 MG TABLET PO SCH (09:54)
[2019-02-02] MEDS: predniSONE 20 MG TAB PO SCH ×2 (09:54→21:00)
[2019-02-02] MEDS: ENOXAPARIN 40 MG/0.4 ML SQ SCH (09:54)
[2019-02-02] MEDS: THEOPHYLLINE SR 100 MG TAB PO SCH (09:55)
[2019-02-02] MEDS: ENSURE ENLIVE 237 ML CAN PO SCH ×2 (09:55→21:00)
== END 2019-02-02 23:28 | DRG 189 ==
LOC: ER 14:24 → ERHOLD 20:39 → 4TH 21:38
PROVIDERS: ADMIT Family Medicine; ATTEND Family Medicine
PROC: 5A09457 Assistance with Respiratory Ventilation, 24-96 Consecutive Hours, Continuous Positive Airway Pressure (ICD-10-PCS; principal; 2019-01-30)
DX: J96.21 Acute and chronic respiratory failure with hypoxia (principal); E43 Unspecified severe protein-calorie malnutrition; J44.1 Chronic obstructive pulmonary disease with (acute) exacerbation; J44.0 Chronic obstructive pulmonary disease with (acute) lower respiratory infection; J20.9 Acute bronchitis, unspecified; J96.22 Acute and chronic respiratory failure with hypercapnia; R91.8 Other nonspecific abnormal finding of lung field; R39.2 Extrarenal uremia; F17.210 Nicotine dependence, cigarettes, uncomplicated
CPT/HCPCS: 36415; 70450; 71045; 71260; 72125; 80048; 80053; 80076; 81003; 81015; 82103; 82805; 83605; 83735; 83880; 84145; 84484; 85025; 85610; 87040; 87086; 87088; 87804; 93005; 93306; 94640; 94660; 94760; 96374; 96375; 97161; 99285; J0456; J0692; J0696; J1650; J2920; J2930; J3475; J7512; J7605; Q9967